=== PATIENT | male | born 1950 | race Caucasian/White ===

== ENCOUNTER → 2024-06-07 06:43 | Outpatient (CLI) | payer OTHER, SELFPAY ==
--- NOTE | 2024-06-07 06:46 | DI.ECHO.S_ITS ---
[facility] : : [address] : : [place] : : [id number] : : Phone: [phone] Echocardiogram Report + + :Name: JAMES DUFFY Study Date: 06/07/2024 Height: 73 in : :Hospital ReadingLocation: Weight: 222 lb : : Gender: Male BSA: 2.2 m2 : :: 1950 Age: 74 yrs BP: 160/83 mmHg: :Reason For Study: OLD ANTERIOR ND : :Ordering Physician: : :MARNI CRESPO Performed By: Mani Zimmerman : :Referring: MARNI CRESPO : + + Interpretation Summary Mild concentric left ventricular hypertrophy with ejection fraction 55-60%. The aortic valve is slightly calcified. The ascending aorta is mildly enlarged. Comparison is made with the echocardiogram of 11/09/2022, wall motion abnormality has improved. Procedure: A two-dimensional transthoracic echocardiogram with color flow and Doppler was performed. The study quality was technically good. Comparison is made with the echocardiogram of 11/09/2022. The patient was in normal sinus rhythm during the exam. Left Ventricle: The left ventricle is normal in size. There is mild concentric left ventricular hypertrophy. There is no ventricular septal defect visualized. The ejection fraction is estimated to be 55-60%. There are no focal wall motion abnormalities. Right Ventricle: The right ventricle is normal in size and function. Atria: The left atrial size is normal. The right atrium is mildly dilated. There is no Doppler evidence for an interatrial shunt. Mitral Valve: The mitral valve is normal in structure and function. There is trace mitral regurgitation. Aortic Valve: The aortic valve is trileaflet. The aortic valve opens well. The aortic valve is slightly calcified. No aortic regurgitation is present. Tricuspid Valve: The tricuspid valve is normal in structure and function. No tricuspid regurgitation. Pulmonic Valve: The pulmonic valve is normal in structure and function. There is trace pulmonic regurgitation. Great Vessels: The aortic root is mildly dilated. The ascending aorta is mildly enlarged. The pulmonary artery is normal size. The IVC is of normal diameter and collapses greater than 50% with a sniff. This suggests a low right atrial pressure of 3 mm Hg. Pericardium/ Pleura There is no pericardial effusion. There is no pleural effusion. MMode/2D Measurements & Calculations LVIDd: 5.0 cm LVOT diam: 2.1 cm LVIDs: 3.2 cm Ao root diam: 3.8 cm FS: 36.0 % asc Aorta Diam: 3.8 cm EPSS: 0.47 cm IVSd: 1.2 cm LVPWd: 1.2 cm LV al. diameter/BSA (cm/m^2): 2.2 LV sys. diameter/BSA (cm/m^2): 1.4 LA A2 area: 25.1 cm2 RA long axis: 6.1 cm LA A4 area: 19.9 cm2 RA area: 19.3 cm2 LA length (vol): 5.9 cm RA vol: 51.6 ml LA vol: 72.2 ml RA : 23.0 ml/m2 LA vol index: 32.1 ml/m2 IVC diam: 1.7 cm RVD1 (basal): 3.8 cm RVD2 (mid): 3.7 cm TAPSE: 3.3 cm Doppler Measurements & Calculations Ao V2 max: 147.1 cm/sec LVOT Max Niles: 110.9 cm/sec Ao V2 mean: 99.9 cm/sec LV V1 max P.9 mmHg Ao max P.7 mmHg LV V1 VTI: 26.8 cm Ao mean P.6 mmHg MARY(I,D): 2.7 cm2 Ao V2 VTI: 33.8 cm MARY(V,D): 2.6 cm2 sev ratio: 0.79 MARY indexed to BSA (cm^2/m^2): 1.2 MV E max niles: 59.6 cm/sec TR max niles: 234.7 cm/sec MV A max niles: 67.0 cm/sec TR max P.0 mmHg MV E/A: 0.89 PA V2 max: 100.9 cm/sec Med Peak E' Niles: 7.3 cm/sec PA V2 mean: 68.7 cm/sec E/E' med: 8.2 PA mean P.2 mmHg Lat Peak E' Niles: 10.6 cm/sec E/E' lat: 5.6 E/e' average: 6.9 MV dec time: 0.30 sec SV(LVOT): 91.7 ml Electronically signed by: Marni Franklin on Reading Physician:06/08/2024 02:58 PM
== END ==
LOC: ECHO 06:46
PROVIDERS: Referring Provider Internal Medicine Interventional Cardiology; Visit Provider Internal Medicine Interventional Cardiology
DX: I25.2 Old myocardial infarction (principal); I77.810 Thoracic aortic ectasia; I77.89 Other specified disorders of arteries and arterioles
CPT/HCPCS: 93306